=== PATIENT | female | born 1965 | race African-American/Black ===

== ENCOUNTER 2018-02-26 12:56 | Emergency (ER) | payer OTHER ==
[~2018-02-26] VITALS: Ht 154.9 cm; Wt 72.6 kg
[~2018-02-26 12:56] MED LIST: ACETAMINOPHEN-1 EAC1 ORAL; ACETAMINOPHEN-1 EAC2 ORAL; AMLODIPINE BES2.5 MG ORAL; BENADRYL25 MG ORAL; CEPHALEXIN500 MG ORAL; HYDROCHLOROTH12.5 M2 ORAL; IBUPROFEN600 MG ORAL; KEFLEX500 MG ORAL; PHENAZOPYRIDIN100 MG ORAL; RANITIDINE HCL150 MG ORAL; ZOFRAN4 MG ORAL
[2018-02-26 13:14] VITALS: BP 160/88
[2018-02-26] MEDS ORDERED: METOPROLOL TART50 MG ORAL (13:18)
--- NOTE | 2018-02-26 13:38 | Emergency Room Report ---
History of Present Illness General Chief Complaint: Skin Rash/Abscess Source: Patient Present Illness HPI 52-year-old female patient presents ER complaining of left eye swelling since this morning. Reports that she stated in a different bed last night then her home and woke up this morning with left eye swollen and possible bug bites on her left arm, patient reports areas on forearms are itchy denies drainage. Patient denies fever, chest pain, shortness of breath. Patient denies loss of vision. Reports she wears glasses. Denies loss of vision or eye pain, states pain and itching of upper left eyelid. patient denies foreign body sensation. Allergies: Coded Allergies: No Known Allergies (Unverified , 10/30/13) Patient History Past Medical History: see triage record Reviewed Nursing Documentation: PMH: Agreed; PSxH: Agreed Nursing Documentation-PMH Past Medical History: No History, Except For Hx Hypertension: Yes Review of Systems All Other Systems: negative except mentioned in HPI Physical Exam Vital Signs Date Time Temp Pulse Resp B/P (MAP) Pulse Ox O2 Delivery O2 Flow Rate FiO2 02/26/18 13:14 97.7 82 16 160/88 94 Room Air 97.7 Sp02 EP Interpretation: reviewed, normal General Appearance: well appearing, no apparent distress, alert, GCS 15, non- toxic Head: normocephalic, atraumatic Eyes: left eye lid inflammation - upper eyelid swollen and erythematous, tender to palpation; bilateral eye normal inspection, bilateral eye PERRL, bilateral eye other - no conjunctival injection ENT: hearing grossly normal, normal pharynx, no angioedema, normal voice, TMs + canals normal, uvula midline, moist mucus membranes Neck: full range of motion Respiratory: lungs clear, normal breath sounds, no rhonchi, no respiratory distress, no accessory muscle use, no wheezing, speaking full sentences Cardiovascular #1: regular rate, rhythm, no edema Cardiovascular #2: 2+ radial (R), 2+ radial (L) Skin: other - left shoulder blade and left forearm, 2 areas of 1-2 cm area of swelling and erythema on left forearm and one area on left shoulder blade, no central clearing, no bleeding or drainage, no vesicles, no pus or bleeding Medical Decision Making PA Attestation Dr. Richter is my supervising Physician whom patient management has been discussed with. Diagnostic Impression: Primary Impression: Preseptal cellulitis Additional Impression: Insect bite ER Course Pt. presents to the ED c/o eye infection. Ddx considered but are not limited to rash, cellulitis, abscess, atopic dermatitis, bacterial conjunctivitis, blepharitis. No pain with eye movement, no fever, no vision changes, no proptosis, no diplopia, low suspicion for postseptal cellulitis, does not require CT at this time. [facility] WNL for patient, see nurse note. Followup with community health counselor for further testing. Vital signs: are WNL, pt. is afebrile. patient blood pressure mildly elevated, patient states she did not take her blood pressure medication today. For patient to take her blood pressure medication, do not skip dosages. Follow-up with primary care provider for further treatment and management. patient denies chest pain, shortness breath, other acute symptoms, does not require acute intervention in the ER at this time. See Nurses note for [facility]. Ordered Benadryl and prednisone. ER COURSE: On physical exam, swelling and erythema of the upper eyelid, possibly due to bug bites and or allergic reaction, will provide antibiotic treatment patient. patient nontoxic appearing, afebrile, talking without difficulty, Do not believe bug bites required incision and drainage, will treat with Benadryl and cortisone cream. apply cool compresses to eye and bug bites. may apply small amount of hydrocortisone to affected areas on skin, do not apply to eye. reports will get hydrocortisone cream [id number], does not need Rx at this time. follow with primary care provider. Avoid excessive touching eye. Wash hands. Wash clothes and sheets. Patient seen and evaluated by Dr. Richter agrees with treatment and plan. Needs 24 hour followup with assurance specialist. Return to ER for new or worsening of symptoms immediately, including but not limited to worsening of swelling and erythema, pain with eye movement. DISCHARGE: -Rx provided for Keflex Rx provided for Benadryl At this time pt. is stable for d/c to home. Patient resting comfortably, in no acute distress, nontoxic appearing, smiling and laughing. Will provide printed patient care instructions, and any necessary prescriptions. Patient instructed to complete current course of antibiotics. Care plan and follow up instructions have been discussed with the patient prior to discharge. Patient instructed to follow-up with primary care provider and assurance specialist in 24 hours. Patient questions asked and answered. ER precautions given. Patient instructed to return to ER immediately for any new or worsening of symptoms including but not limited to increasing SOB, persistent fever, intractable vomiting, calf pain. - Please note that this Emergency Department Report was dictated using [employer] training specialist technology software, occasionally this can lead to erroneous entry secondary to interpretation by the dictation equipment. Last Vital Signs Date Time Temp Pulse Resp B/P (MAP) Pulse Ox O2 Delivery O2 Flow Rate FiO2 02/26/18 13:14 97.7 82 16 160/88 94 Room Air 97.7 Disposition: HOME, SELF-CARE Condition: Stable Scripts Cephalexin* (KEFLEX*) 500 Mg Capsule 500 MG ORAL EVERY 12 HOURS, #14 CAP 0 Refills Prov: David Connor 02/26/18 Diphenhydramine Hcl* (BENADRYL*) 25 Mg Capsule 25 MG ORAL DAILY PRN for Itching, #20 CAP Prov: David Connor 02/26/18 Patient Instructions: Insect Bite, [id number], Preseptal Cellulitis, Adult Additional Instructions: Followup with primary care provider and requests referral to assurance specialist. Follow-up with community health counselor. Apply warm compresses to affected eye. Do not scratch or itch eye. Take medications as directed. Patient questions asked and answered. ER precautions given, patient instructed to return to ER immediately for any new or worsening of symptoms. David Connor February 26, 2018 13:38
[2018-02-26] MEDS ORDERED: BENADRYL25 MG ORAL (13:44)
[2018-02-26] MEDS ORDERED: CEPHALEXIN500 MG ORAL (13:44)
[2018-02-26 14:03] VITALS: BP 160/88
== END 2018-02-26 14:04 | disposition home or self-care (01) ==
LOC: EMR 13:44
DX: L03.213 Periorbital cellulitis (principal); S40.262A Insect bite (nonvenomous) of left shoulder, initial encounter; S50.862A Insect bite (nonvenomous) of left forearm, initial encounter; W57.XXXA Bitten or stung by nonvenomous insect and other nonvenomous arthropods, initial encounter; Y92.9 Unspecified place or not applicable; I10 Essential (primary) hypertension
CPT/HCPCS: 99284; J7512

== ENCOUNTER 2019-04-14 21:30 | Emergency (ER) | payer OTHER ==
[~2019-04-14] VITALS: Ht 157.5 cm; Wt 65.8 kg
[~2019-04-14 21:30] MED LIST changes: +METOPROLOL TART50 MG ORAL
--- NOTE | 2019-04-14 21:35 | NUR ---
ED Nurse Note: Juarez walked into ED c/o right foot injury, stats that a shelf fell on her right foot, rates her pain a 7/10, able to ambulate however with pain. patient is alert and oriented x4.
--- NOTE | 2019-04-14 21:51 | Emergency Room Report ---
History of Present Illness General Chief Complaint: Lower Extremity Injury Source: Patient Present Illness HPI This is a 53-year-old female with a history of high blood pressure patient presents with right ankle pain. Onset was yesterday at work. She was at work and somebody knocked over some shelf and landed on the back of her ankle and leg. Was hurting initially but worsen after she got home. Throbbing in nature. Worse with movement. Localized to the Achilles tendon. No other injury. Did not pass out. Patient said that she did take her blood pressure medication today. Allergies: Coded Allergies: No Known Allergies (Unverified , 10/30/13) Patient History Past Medical History: see triage record, old chart reviewed, HTN Past Surgical History: none Pertinent Family History: none Social History: Denies: smoking Last Menstrual Period: 03/2019 Now: No Immunizations: other Reviewed Nursing Documentation: PMH: Agreed; PSxH: Agreed Nursing Documentation-PMH Hx Hypertension: Yes Review of Systems Eye: Denies: eye pain, blurred vision ENT: Denies: ear pain, nose congestion, throat swelling Respiratory: Denies: cough, shortness of breath Cardiovascular: Denies: chest pain, palpitations Gastrointestinal: Denies: abdominal pain, diarrhea, nausea, vomiting Musculoskeletal: Reports: joint pain; Denies: back pain Skin: Denies: rash Neurological: Denies: headache, numbness Endocrine: Denies: increased thirst, increased urine Hematologic/Lymphatic: Denies: easy bruising All Other Systems: negative except mentioned in HPI Physical Exam Vital Signs Date Time Temp Pulse Resp B/P (MAP) Pulse Ox O2 Delivery O2 Flow Rate FiO2 04/14/19 21:34 97.5 69 17 229/110 (149) 96 Room Air Vitals with high blood pressure Sp02 EP Interpretation: reviewed, normal General Appearance: well appearing, no apparent distress, alert Head: normocephalic, atraumatic Eyes: bilateral eye PERRL, bilateral eye EOMI ENT: hearing grossly normal, normal pharynx Neck: full range of motion, supple, no meningismus Respiratory: chest non-tender, lungs clear, normal breath sounds Cardiovascular #1: regular rate, rhythm, no murmur Gastrointestinal: normal bowel sounds, non tender, no mass, no organomegaly, no bruit, non-distended Musculoskeletal: back normal, gait/station normal, normal range of motion Psychiatric: mood/affect normal Procedures Splinting Splinting : Consent: Verbal Location: Right ankle Hand-Made Type: plaster Splint: poserior short Pre-Proc Neuro Vasc Exam: normal Post-Proc Neuro Vasc Exam: normal Patient Tolerated: Well Complications: None Medical Decision Making Diagnostic Impression: Primary Impression: Achilles tendon injury Qualified Codes: S86.001A - Unspecified injury of right Achilles tendon, initial encounter Additional Impression: Hypertension Qualified Codes: I10 - Essential (primary) hypertension ER Course Patient presents with Achilles tendon injury. No evidence of any rupture. Patient splinted. Her blood pressure is elevated. No evidence of any endorgan damage. She has no symptoms. Better after medication. Will discharge home. Other X-Ray Diagnostic Results Other X-Ray Diagnostic Results : X-Ray ordered: Right ankle x-rays # of Views/Limited Vs Complete: 3 View Indication: Pain EP Interpretation: Yes Interpretation: no dislocation, no soft tissue swelling, no fractures Impression: No acute disease Electronically Signed by: Bill Neal MD Last Vital Signs Date Time Temp Pulse Resp B/P (MAP) Pulse Ox O2 Delivery O2 Flow Rate FiO2 04/14/19 21:34 97.5 69 17 229/110 (149) 96 Room Air Status: improved Disposition: HOME, SELF-CARE Condition: Stable Scripts Naproxen* (NAPROXEN*) 500 Mg Tablet. 500 MG ORAL TWICE A DAY, #30 TAB Prov: Bill Neal MD 04/14/19 Additional Instructions: Take your blood pressure medication. Follow-up with your doctor in 7 days. Return if symptoms worsen. Bill Neal MD Apr 14, 2019 21:51
[2019-04-14] MEDS ORDERED: HYDROcodone/Acetamin 5/325 tab ORAL ONE (22:00)
--- NOTE | 2019-04-14 22:00 | NUR ---
ED Nurse Note: Patient refused catapres, states that she only wants metropolol. Dr. Neal notified
[2019-04-14] MEDS ORDERED: Metoprolol Tartrate 50mg tab ONE (22:21)
[2019-04-14] MEDS ORDERED: Metoprolol Succinate XL 50mg tab ORAL ONE (22:30)
[2019-04-14] MEDS ORDERED: NAPROXEN500 M1 ORAL (22:57)
[2019-04-14 23:10] VITALS: BP 214/99
--- NOTE | 2019-04-14 23:13 | NUR ---
ER DISCHARGE NOTE: Patient is cleared to be discharged per ERMD, pt is aox4, on room air, . pt was given dc and prescription instructions, pt was able to verbalize understanding, pt id band removed without complications. pt is able to ambulate with crutches. pt took all belongings. patient's blood pressure 214/99, complains of no headache, vision changes. states that she will be going to see her PMD within the morning. patient was also given work note for 2 days
--- NOTE | 2019-04-15 12:04 | Diagnostic Imaging Report ---
Indication: ankle pain/trauma Comparison: None Findings: 3 views of the right ankle obtained. No acute fracture, malalignment, periostitis, or osteochondral defects are identified. Soft tissues are unremarkable.. Impression: No acute findings
== END 2019-04-14 23:15 | disposition home or self-care (01) ==
LOC: EMR 21:33
DX: S86.001A Unspecified injury of right Achilles tendon, initial encounter (principal); W20.8XXA Other cause of strike by thrown, projected or falling object, initial encounter; Y92.89 Other specified places as the place of occurrence of the external cause; I10 Essential (primary) hypertension
CPT/HCPCS: 29515; 99283

== ENCOUNTER 2020-09-24 11:45 | Emergency (ER) | payer OTHER ==
[~2020-09-24] VITALS: Ht 154.9 cm; Wt 65.3 kg
[~2020-09-24 11:45] MED LIST changes: +NAPROXEN500 M1 ORAL
--- NOTE | 2020-09-24 11:57 | NUR ---
ED Nurse Note: Pt walked in to ED c/o right arm pain and abcess from spider bite x4 days. Pt alos c/o swollen eyes and blurry vision onset today. AAOx4, no SOB. afebrile. ERPA at bedside.
[2020-09-24 11:58] VITALS: BP 164/91
--- NOTE | 2020-09-24 11:58 | NUR ---
Note florian in EDM - 09/24/20 at 1234 by AKYE ED Nurse Note: Pt walked in to ED c/o right arm pain and abcess from spider bite x4 days. Pt alos c/o swollen eyes and blurry visio
[2020-09-24] MEDS ORDERED: Tetanus/Diptheria/Pertussis IM ONE (12:30)
[2020-09-24] MEDS ORDERED: Bactrim-DS 1 tab ORAL ONE (12:45)
[2020-09-24] MEDS ORDERED: Ketorolac 30mg Inj IM ONE (12:45)
[2020-09-24] MEDS ORDERED: HYDROcodone/Acetamin 5/325 tab ORAL ONE (12:45)
[2020-09-24] MEDS ORDERED: Cephalexin 500mg cap ORAL ONE (12:45)
[2020-09-24] MEDS ORDERED: Lidocaine 2% 20mg/ml/EPI 0.01mg/ml 20ml INJ ONE (12:45)
--- NOTE | 2020-09-24 13:45 | Emergency Room Report ---
History of Present Illness General Chief Complaint: Animal Bite Source: Patient Present Illness HPI 54 YO female presents to the ED c/o 07/14 in severity swelling, pain, tenderness and draining wound on the right forearm x 5 days. Pt. denies fevers or chills. Patient is not sure when her last tetanus vaccine was. Patient reports she sustained her injury via a spider bite. Patient reports that the wound is gotten bigger over the course of 5 days. She denies blood thinning medications. She denies history of immune compromise. She reports swelling, dryness and crusting to the bilateral eyes upon awakening this morning. Patient reports she applied antibiotic eye ointment. She denies visual changes. She denies increased lacrimation. She denies foreign body sensation. Denies swelling of the lips or tongue. 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 Patient History Past Medical History: see triage record Past Surgical History: none Pertinent Family History: none Now: No Reviewed Nursing Documentation: PMH: Agreed; PSxH: Agreed Nursing Documentation-PMH Past Medical History: No History, Except For Hx Hypertension: Yes Review of Systems All Other Systems: negative except mentioned in HPI Physical Exam Vital Signs Date Time Temp Pulse Resp B/P (MAP) Pulse Ox O2 Delivery O2 Flow Rate FiO2 09/24/20 11:52 98.2 76 16 164/91 (115) 94 Room Air Sp02 EP Interpretation: reviewed, normal General Appearance: no apparent distress, alert, GCS 15, non-toxic Head: normocephalic, atraumatic Eyes: bilateral eye normal inspection, bilateral eye PERRL, bilateral eye other - bilateral -very mild eyelid swelling top and bottom. No obvious crusting/discharge noted. ENT: hearing grossly normal, normal voice Neck: full range of motion Respiratory: chest non-tender, lungs clear, normal breath sounds, speaking full sentences Cardiovascular #1: regular rate, rhythm, no edema, normal capillary refill Musculoskeletal: normal range of motion, gait/station normal, non-tender Neurologic: alert, motor strength/tone normal, oriented x3, sensory intact, responsive, speech normal Psychiatric: judgement/insight normal Skin: other - 1.5 abscess with necrotic eschar of the right forearm. Lymphatic: no adenopathy Procedures Incision and Drainage Incision and Drainage : Consent: Verbal Site: RIght Forearm Blade Size: 11 I & D Procedure: betadine prep, sterile drapes applied, sterile dressing applied Wound Location: upper extremity - Right forearm Wound's Depth, Shape: irregular Wound Length (cm): 1 Wound Explored: contaminated - necrotic tissue Irrigated w/ Saline (ccs): 500 Anesthesia: Lidocaine w/ Epi Volume Anesthetic (ccs): 3 Splint Applied?: No Sling Applied?: No Patient Tolerated: Well Complications: None Progress Some mild debridement was performed to remove necrotic eschar. Medical Decision Making PA Attestation Dr. Joseph is my supervising Physician whom patient management has been discussed with. Diagnostic Impression: Primary Impression: Necrotic eschar Additional Impressions: Cellulitis Qualified Codes: L03.113 - Cellulitis of right upper limb Conjunctivitis Qualified Codes: H10.33 - Unspecified acute conjunctivitis, bilateral ER Course 54 YO female presents to the ED c/o 07/14 in severity swelling, pain, tenderness and draining wound on the right forearm x 5 days. Pt. denies fevers or chills. Patient is not sure when her last tetanus vaccine was. Patient reports she sustained her injury via a spider bite. Patient reports that the wound is gotten bigger over the course of 5 days. She denies blood thinning medications. She denies history of immune compromise. She reports swelling, dryness and crusting to the bilateral eyes upon awakening this morning. Patient reports she applied antibiotic eye ointment. She denies visual changes. She denies increased lacrimation. She denies foreign body sensation. Denies swelling of the lips or tongue. Ddx considered but are not limited to cellulitis, abscess, cystic acne, necrotizing fasciitis, insect bite. Vital signs: are WNL, pt. is afebrile H&PE are most consistent with 1.5 abscess with necrotic eschar of the right forearm. also bilateral conjuctivitis, most likely allergic, however due to hx of crusting this am will treat with ophthalmic abx. ORDERS: none required at this time, the diagnosis is clinical ED INTERVENTIONS: -I & D.- debridement of necrotic tissues - Tetanus -[place] Po -Toradol IM - Bactrim DS PO -Keflex 500mg PO DISCHARGE: At this time pt. is stable for d/c to home. Will provide printed suzanne ent care instructions, and any necessary prescriptions. Care plan and follow up instructions have been discussed with the patient prior to discharge. Last Vital Signs Date Time Temp Pulse Resp B/P (MAP) Pulse Ox O2 Delivery O2 Flow Rate FiO2 09/24/20 11:58 98.2 76 16 164/91 94 Room Air Status: improved Disposition: HOME, SELF-CARE Condition: Stable Scripts Hydrocodone Bit/Acetaminophen 5-325* (NORCO 5-325 TABLET*) 1 Each Tablet 1 TAB ORAL Q6H PRN for FOR PAIN, #10 TAB 0 Refills Prov: Cristina Leon 09/24/20 Ofloxacin (OCUFLOX) 5 Ml Drops 1 ML OP TID for 5 Days, #5 ML Prov: Cristina Leon 09/24/20 Olopatadine Hcl (PATADAY) 2.5 Ml Drops 1 DROP OP DAILY, #2.5 ML Prov: Cristina Leon 09/24/20 Cephalexin* (KEFLEX*) 500 Mg Capsule 500 MG ORAL EVERY 12 HOURS for 7 Days, #14 CAP 0 Refills Prov: Cristina Leon 09/24/20 Trimethoprim/Sulfamethoxazole 160/800* (BACTRIM DS TABLET*) 1 Each Tablet 1 TAB ORAL TWICE A DAY for 7 Days, #14 TAB Prov: Cristina Leon 09/24/20 Patient Instructions: Abscess, Bacterial Conjunctivitis, [id number], Surgical Wound Debridement, Care After Additional Instructions: Take medications as directed. Follow up with a Primary Care Provider in 3-5 days, even if your symptoms have resolved. Return sooner to ED if new symptoms occur, or current symptoms become worse. - Please note that this Emergency Department Report was dictated using [employer] unit director technology software, occasionally this can lead to erroneous entry secondary to interpretation by the dictation equipment. Cristina Leon Sep 24, 2020 13:45
[2020-09-24] MEDS ORDERED: BACTRIM DS TAB1 EAC1 ORAL (13:47)
[2020-09-24] MEDS ORDERED: CEPHALEXIN500 MG ORAL (13:47)
[2020-09-24] MEDS ORDERED: NORCO 5-325 TA1 EAC1 ORAL (13:49)
[2020-09-24] MEDS ORDERED: PATADAY2.5 ML OP (13:49)
[2020-09-24] MEDS ORDERED: OCUFLOX5 ML OP (13:49)
[2020-09-24 14:01] VITALS: BP 144/81
--- NOTE | 2020-09-24 14:01 | NUR ---
ED Nurse Note: Pt cleared by ERPA for discharge. DC instructions/prescription was given and explained to pt and verbalized understanding of teachings. All medical deviecs such as ID band removed. Pt is AAO x4, ambulatory and left with all personal belongings.
== END 2020-09-24 14:01 | disposition home or self-care (01) ==
LOC: EMR 13:34
DX: L90.5 Scar conditions and fibrosis of skin (principal); L03.113 Cellulitis of right upper limb; H10.33 Unspecified acute conjunctivitis, bilateral; Z23 Encounter for immunization; I10 Essential (primary) hypertension
CPT/HCPCS: 10060; 90471; 90715; 96372; J1885; Z7502; 99283